=== PATIENT | female | born 1995 | race Hispanic/Latino ===

== ENCOUNTER 2023-04-28 06:49 | Day surgery (SDC) | payer MEDICAID, OTHER ==
[2023-04-28 07:10] VITALS: BMI 27.8
[2023-04-28] MEDS ORDERED: hydrALAZINE 20 MG/ML VIAL SLOW IVP PRN (07:35)
== END 2023-04-28 09:40 | disposition home or self-care (01) ==
LOC: CSHLD/OP 06:49
PROVIDERS: ATTEND Obstetrics & Gynecology
DX: O9A.213 Injury, poisoning and certain other consequences of external causes complicating pregnancy, third trimester (principal); Z3A.30 30 weeks gestation of pregnancy; W19.XXXA Unspecified fall, initial encounter
CPT/HCPCS: 76815; 99283